=== PATIENT | female | born 1970 | race Caucasian/White ===

== ENCOUNTER 2022-08-22 23:24 | Emergency (ER) | payer SELFPAY ==
[~2022-08-22] VITALS: Ht 162.6 cm; Wt 82.0 kg
[2022-08-22 23:31] VITALS: BP 126/88; PULSE 100; RESP 18; TEMP 98.9; O2SAT 98
[2022-08-23] MEDS ORDERED: SODIUM CHLORIDE 0.9% 1,000 ML IV ONE (00:15)
== END 2022-08-23 00:26 | disposition left against medical advice (07) ==
LOC: ER 23:50
DX: R55 Syncope and collapse (principal); F31.9 Bipolar disorder, unspecified
CPT/HCPCS: 99283; 93005; J7030